=== PATIENT | male | born 1975 | race Caucasian/White ===

== ENCOUNTER 2019-04-12 18:19 | Emergency (ER) | payer SELFPAY ==
--- NOTE | 2019-04-12 18:59 | ER Document Report ---
ED Medical Screen (RME) - General Chief Complaint: Arm Pain Stated Complaint: POSSIBLE DISLOCATION Time Seen by Provider: 04/12/19 18:54 Mode of Arrival: Ambulatory Information source: Patient Notes: 44-year-old male presents to ED for complaint of pain and swelling decreased range of motion to the left elbow shoulder and wrist he also has swelling to the right clavicle. 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 He does smoke a pack and a half a day drinks monthly uses marijuana. He is alert oriented respirations regular and unlabored. He states it is very difficult and painful for him to move his elbow wrist or shoulder on the left. I have greeted and performed a rapid initial assessment of this patient. A comprehensive ED assessment and evaluation of the patient, analysis of test results and completion of medical decision making process will be conducted by an additional ED providers. - Related Data Allergies/Adverse Reactions: No Known Allergies Allergy (Verified 04/12/19 18:51) Physical Exam - Vital signs Vitals: Temp Pulse Resp BP Pulse Ox 98.3 F 77 16 136/92 H 100 04/12/19 18:30 04/12/19 18:30 04/12/19 18:30 04/12/19 18:30 04/12/19 18:30 Course - Vital Signs Vital signs: Temp Pulse Resp BP Pulse Ox 98.3 F 77 16 136/92 H 100 04/12/19 18:30 04/12/19 18:30 04/12/19 18:30 04/12/19 18:30 04/12/19 18:30
--- NOTE | 2019-04-12 19:44 | RADIOLOGY REPORT (SQ) ---
EXAM DESCRIPTION: CLAVICLE RIGHT COMPLETED DATE/TIME: 04/12/2019 7:28 pm REASON FOR STUDY: pain and swelling decreased rom COMPARISON: None. NUMBER OF VIEWS: Two views. TECHNIQUE: Frontal and angled images were acquired of the right clavicle. LIMITATIONS: None. FINDINGS: MINERALIZATION: Normal. BONES: No acute fracture or dislocation. Mild AC joint arthrosis. . SOFT TISSUES: No obvious swelling or foreign body. OTHER: No other significant finding. IMPRESSION: No fracture. TECHNICAL DOCUMENTATION: JOB ID: [id number] [place]-72 2010 [email or web address]- All Rights Reserved Reading location - IP/workstation name: [email or web address]
--- NOTE | 2019-04-12 19:47 | RADIOLOGY REPORT (SQ) ---
EXAM DESCRIPTION: ELBOW LEFT OVER 2 VIEWS COMPLETED DATE/TIME: 04/12/2019 7:28 pm REASON FOR STUDY: pain and swelling decreased rom COMPARISON: None. EXAM PARAMETERS: NUMBER OF VIEWS: Four views. TECHNIQUE: AP, lateral and oblique radiographic images acquired of the left elbow. LIMITATIONS: None. FINDINGS: MINERALIZATION: Normal. BONES: No acute fracture or dislocation. No worrisome bone lesions. JOINTS: No effusion. SOFT TISSUES: No significant soft tissue swelling. No radiopaque foreign body. OTHER: No other significant finding. IMPRESSION: NO FRACTURE. TECHNICAL DOCUMENTATION: JOB ID: [id number] [place]-72 2010 [employer]- All Rights Reserved Reading location - IP/workstation name: [email or web address]
--- NOTE | 2019-04-12 19:54 | RADIOLOGY REPORT (SQ) ---
EXAM DESCRIPTION: WRIST LEFT 3 VIEWS COMPLETED DATE/TIME: 04/12/2019 7:29 pm REASON FOR STUDY: pain and swelling decreased rom COMPARISON: None. EXAM PARAMETERS: NUMBER OF VIEWS: Three views. TECHNIQUE: AP, lateral and oblique radiographic images acquired of the left wrist. LIMITATIONS: None. FINDINGS: MINERALIZATION: Normal. BONES: No acute fracture or dislocation. No worrisome bone lesions. JOINTS: No effusion. SOFT TISSUES: No significant soft tissue swelling. No radiopaque foreign body. OTHER: No other significant finding. IMPRESSION: NO FRACTURE. TECHNICAL DOCUMENTATION: JOB ID: [id number] [place]-72 2010 [email or web address]- All Rights Reserved Reading location - IP/workstation name: [email or web address]
--- NOTE | 2019-04-12 19:56 | RADIOLOGY REPORT (SQ) ---
EXAM DESCRIPTION: SHOULDER LEFT 2 OR MORE VIEWS COMPLETED DATE/TIME: 04/12/2019 7:29 pm REASON FOR STUDY: pain and swelling decreased rom COMPARISON: None. NUMBER OF VIEWS: Three views. TECHNIQUE: Internal rotation, external rotation, and Y view images acquired of the left shoulder. LIMITATIONS: None. FINDINGS: MINERALIZATION: Normal. BONES: No acute fracture. Mild AC joint arthrosis. JOINTS: No dislocation. VISUALIZED LUNGS AND RIBS: No pneumothorax. No rib fracture. SOFT TISSUES: No radiopaque foreign body. OTHER: No other significant finding. IMPRESSION: NO RADIOGRAPHIC EVIDENCE OF ACUTE INJURY. TECHNICAL DOCUMENTATION: JOB ID: [id number] [place]-72 2010 [employer]- All Rights Reserved Reading location - IP/workstation name: [email or web address]
[2019-04-12] MEDS ORDERED: HYDROCODONE/ACETAMINOPHEN 5-325 MG (6 TAB/ER DISP) PO PRN (21:13)
--- NOTE | 2019-04-12 21:13 | ER Document Report ---
HPI - HPI Time Seen by Provider: 04/12/19 18:54 Pain Level: 2 Context: 44-year-old male with [id number] diabetes presents to the emergency department with concern for a right clavicle dislocation. Patient states that he stretched his arm about 5 weeks ago and heard a pop and thinks he dislocated it. Patient is also complaining of some left upper extremity paresthesias and tingling. He has normal strength and normal range of motion. Denies fevers or chills, denies acute shortness of breath or chest pain, denies IV drug use. 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 - REPRODUCTIVE Reproductive: DENIES: : Past Medical History - General Information source: Patient - Social History Smoking Status: Current Every Day Smoker Chew tobacco use (# tins/day): No Frequency of alcohol use: Occasional Drug Abuse: Marijuana Family History: None Patient has suicidal ideation: No Patient has homicidal ideation: No Vertical Provider Document - CONSTITUTIONAL Notes: PHYSICAL EXAMINATION: Reviewed vital signs and charting by RN GENERAL: Alert, interacts well. No acute distress. HEAD: Normocephalic, atraumatic. EYES: Pupils equal and round. Extraocular movements intact. ENT: Oral mucosa moist, tongue midline. NECK: Full range of motion. Trachea midline. EXTREMITIES: Moves all 4 extremities spontaneously. No edema, No cyanosis. Normal distal neurovascular exam bilateral upper extremities PSYCH: Normal affect, normal mood. SKIN: Warm, dry, normal turgor. No rashes or lesions noted. - INFECTION CONTROL TRAVEL OUTSIDE OF THE [place] IN LAST 30 DAYS: No Course - Re-evaluation Re-evalutation: 04/12/19 21:33 Well-appearing in no acute distress. X-rays all negative for fractures or dislocations. Patient is reassured as that was his chief concern. Stable for discharge. - Vital Signs Vital signs: Temp Pulse Resp BP Pulse Ox 98.3 F 77 16 136/92 H 100 04/12/19 18:30 04/12/19 18:30 04/12/19 18:30 04/12/19 18:30 04/12/19 18:30 Discharge - Discharge Clinical Impression: Pain of left clavicle Condition: Good Disposition: HOME, SELF-CARE Additional Instructions: You were seen for pain of your left collarbone. The x-rays did not show any clear dislocation so it is unclear why it is more prominent. All the x-rays were reassuring. You have been given information for the [facility] which is a free clinic here in town. You can follow-up with them if you need to for diabetes management or any other concerns you may have. I have given you a very short course of pain medication here in the ER you can use to help with sleep.
[2019-04-12 21:19] VITALS: BP 137/76
== END 2019-04-12 21:30 | disposition home or self-care (01) ==
LOC: ER 18:19
DX: M89.8X1 Other specified disorders of bone, shoulder (principal); R20.0 Anesthesia of skin; R20.2 Paresthesia of skin; F17.200 Nicotine dependence, unspecified, uncomplicated; F12.10 Cannabis abuse, uncomplicated
CPT/HCPCS: 99283

== ENCOUNTER 2019-11-26 11:30 | Emergency (ER) | payer SELFPAY ==
[2019-11-26] MEDS ORDERED: NORMAL SALINE 1000 ML 1,000 ML IV ONE (12:03)
--- NOTE | 2019-11-26 12:05 | ER Document Report ---
ED Medical Screen (RME) - General Chief Complaint: High Blood Sugar Stated Complaint: BLOOD SUGAR ISSUE Time Seen by Provider: 11/26/19 11:56 Notes: Patient is a 44-year-old [id number] diabetic who presents emergency department with high blood sugars. Patient states that he has generally not felt well. He is supposed be taking metformin and glipizide, but states that he does not see a primary care provider. He states that he usually goes to the emergency department to have his prescriptions filled. This morning his sugar was in 300s. Patient states that he does not take his medication the way he should and only takes his medications when his blood sugar is high. Exam: S1, S2. I have greeted and performed a rapid initial assessment of this patient. A comprehensive ED assessment and evaluation of the patient, analysis of test results and completion of medical decision making process will be conducted by an additional ED providers. TRAVEL OUTSIDE OF THE [place] IN LAST 30 DAYS: No - Related Data Allergies/Adverse Reactions: No Known Allergies Allergy (Verified 11/26/19 11:53) Home Medications: Metformin. Glipizide Past Medical History - Social History Chew tobacco use (# tins/day): No Frequency of alcohol use: None Drug Abuse: Marijuana Endocrine Medical History: Reports: Hx Diabetes Mellitus Type 2 Physical Exam - Vital signs Vitals: Temp Pulse Resp BP Pulse Ox 97.5 F 87 16 158/95 H 98 11/26/19 11:34 11/26/19 11:34 11/26/19 11:34 11/26/19 11:34 11/26/19 11:34 Course - Vital Signs Vital signs: Temp Pulse Resp BP Pulse Ox 97.5 F 87 16 158/95 H 98 11/26/19 11:34 11/26/19 11:34 11/26/19 11:34 11/26/19 11:34 11/26/19 11:34
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
[2019-11-26 12:41] LABS: ABSOLUTE EOSINOPHILS # (AUTO) 0.1 10^3/uL (0.0-0.6); ABSOLUTE LYMPHOCYTES (AUTO) 2.1 10^3/uL (0.5-4.7); ABSOLUTE MONOCYTES (AUTO) 0.5 10^3/uL (0.1-1.4); ABSOLUTE NEUT (AUTO) 4.9 10^3/uL (1.7-8.2); BASOPHILS % (AUTO) 0.6 % (0-2); EOSINOPHILS % (AUTO) 1.4 % (0-6); HEMOGLOBIN 17.4 g/dL (13.5-17.0); LYMPHOCYTES % (AUTO) 27.3 % (13-45); MEAN CORPUSCULAR HEMOGLOBIN 29.7 pg (27.0-33.4); MEAN CORPUSCULAR HGB CONC 35.4 g/dL (32.0-36.0); MEAN CORPUSCULAR VOLUME 84 fl (80-97); MONOCYTES % (AUTO) 7.1 % (3-13); PLATELET COUNT 182 10^3/uL (150-450); RED BLOOD COUNT 5.85 10^6/uL (4.35-5.55); RED CELL DISTRIBUTION WIDTH 13.3 % (11.5-14.0); SEGMENTED NEUTROPHILS % (AUTO) 63.6 % (42-78); TOTAL CELLS COUNTED % (AUTO) 100 %; WHITE BLOOD COUNT 7.7 10^3/uL (4.0-10.5)
[2019-11-26 12:42] LABS: VENOUS BLOOD BASE EXCESS -0.1 mmol/L; VENOUS BLOOD HCO3 25.9 mmol/L (20-32); VENOUS BLOOD PCO2 46.7 mmHg (35-63); VENOUS BLOOD PH 7.36 (7.30-7.42)
[2019-11-26 12:58] LABS: ALKALINE PHOSPHATASE 86 U/L (38-126); ANION GAP 10 (5-19); ASPARTATE AMINO TRANSFERASE 26 U/L (17-59); BILIRUBIN,DIRECT 0.1 mg/dL (0.0-0.4); BILIRUBIN,TOTAL 1.1 mg/dL (0.2-1.3); BLOOD UREA NITROGEN 11 mg/dL (7-20); CALCIUM 10.1 mg/dL (8.4-10.2); CARBON DIOXIDE 26 mmol/L (22-30); CHLORIDE 99 mmol/L (98-107); GLUCOSE 298 mg/dL (75-110); POTASSIUM 4.4 mmol/L (3.6-5.0); TOTAL PROTEIN 8.2 g/dL (6.3-8.2)
[2019-11-26 13:10] LABS: APPEARANCE,URINE CLEAR; BILIRUBIN,URINE NEGATIVE (NEGATIVE); COLOR,URINE STRAW; GLUCOSE, URINE >=500 mg/dL (NEGATIVE); KETONES,URINE TRACE mg/dL (NEGATIVE); LEUKOCYTE ESTERASE,URINE NEGATIVE (NEGATIVE); NITRITE,URINE NEGATIVE (NEGATIVE); PROTEIN,URINE NEGATIVE (NEGATIVE); URINE SPECIFIC GRAVITY 1.003; UROBILINOGEN,URINE NEGATIVE mg/dL (<2.0)
[2019-11-26] MEDS ORDERED: DIPH/PERTUSS(ACELL)/TETANUS VAC/PF 0.5 ML SYR (>=10YO) IM ONE (13:12)
[2019-11-26] MEDS ORDERED: GLIPIZIDE XL 2.5 MG TAB.ER.24 PO ONE (13:35)
[2019-11-26] MEDS ORDERED: METFORMIN HCL 500 MG TABLET PO ONE (13:35)
[2019-11-26 13:50] VITALS: BP 142/81
--- NOTE | 2019-11-26 20:19 | EKG REPORT ---
SEVERITY:- BORDERLINE ECG - SINUS RHYTHM PROBABLE LEFT ATRIAL ABNORMALITY : Confirmed by: Vitaliy Parada MD 26-Nov-2019 20:18:59
== END 2019-11-26 13:59 | disposition home or self-care (01) ==
LOC: ER 11:30
DX: E11.65 Type 2 diabetes mellitus with hyperglycemia (principal); S51.832A Puncture wound without foreign body of left forearm, initial encounter; W45.8XXA Other foreign body or object entering through skin, initial encounter; F17.200 Nicotine dependence, unspecified, uncomplicated; Z91.14 Patient's other noncompliance with medication regimen
CPT/HCPCS: 93005; 99285; 96360; 90471; 36415; 82962; 85025; 80053; 81001; 82803; 90715; 93010; J3490; J7030